=== PATIENT | female | born 1995 ===

== ENCOUNTER 2017-11-08 01:50 | Emergency (ER) | payer OTHER ==
[2017-11-08 02:18] VITALS: BP 127/82; PULSE 102; RESP 18; TEMP 98.2; O2SAT 97
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
== END 2017-11-08 03:20 ==
LOC: H.ER 01:50
DX: M25.562 Pain in left knee (principal); V43.52XA Car driver injured in collision with other type car in traffic accident, initial encounter; Y92.410 Unspecified street and highway as the place of occurrence of the external cause

== ENCOUNTER 2017-11-08 04:02 | Emergency (ER) | payer SELFPAY ==
[2017-11-08 04:17] VITALS: BP 119/78; PULSE 89; RESP 16; TEMP 98.4; O2SAT 94
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
--- NOTE | 2017-11-08 12:13 | CARD ---
APPROVED REPORT EKG Measurement Heart [id number] <Conclusion> Normal sinus rhythm Normal ECG
== END 2017-11-08 06:20 | disposition home or self-care (01) ==
LOC: H.ER 04:02
DX: R07.89 Other chest pain (principal)